=== PATIENT | male | born 1990 ===

== ENCOUNTER 2016-05-29 14:59 | Emergency (ER) | payer SELFPAY | END 2016-05-29 18:33 | disposition left against medical advice (07) | LOC: ED 14:59 | DX: J02.9 Acute pharyngitis, unspecified (principal); Z53.21 Procedure and treatment not carried out due to patient leaving prior to being seen by health care provider ==

== ENCOUNTER 2017-05-10 18:50 | Emergency (ER) | payer OTHER ==
--- NOTE | 2017-05-10 22:58 | Emergency Department Report ---
Minor Respiratory - HPI Chief Complaint: Upper Respiratory Infection Stated Complaint: FLU LIKE SYMPTOMS Time Seen by Provider: 05/10/17 22:52 Duration: 2 Days Severity: mild Minor Respiratory: Yes Rhinorrhea, Yes Sore Throat, Yes Able to Tolerate Fluids , Yes Cough, Yes Sick Contacts (at work), No Ear Pain, No Hemoptysis, No Chest Pain, No Shortness of Breath, No Fever Other History: This is a 27 y.o. male presents with dizziness, cough, chills, and vomiting for 2 days. Patient reports waking up this morning vomiting once. He started taking dayquil and feel much better. He just wanted to make sure he didn't have the flu. Denies body aches, SOB, chest pain, and abdominal pain. ED Review of Systems ROS: Stated complaint: FLU LIKE SYMPTOMS Other details as noted in HPI Constitutional: denies: chills, fever ENT: throat pain, congestion. denies: ear pain, dental pain, hearing loss, epistaxis Respiratory: cough. denies: orthopnea, shortness of breath, wheezing Cardiovascular: denies: chest pain, palpitations Gastrointestinal: vomiting (once this morning). denies: abdominal pain, nausea , diarrhea, constipation Musculoskeletal: denies: back pain, joint swelling, arthralgia Neurological: denies: headache, weakness, paresthesias ED Past Medical Hx - Past Medical History Previous Medical History?: No - Surgical History Past Surgical History?: No - Social History Smoking Status: Current Every Day Smoker Substance Use Type: None Minor Respiratory Exam - Exam General: Vital signs noted. No distress. Alert and acting appropriately. HEENT: Yes Pharyngeal Erythema, Yes Moist Mucous Membranes, Yes Rhinorrhea, No Pharyngeal Exudates, No Conjuctival Injection, No Frontal Tenderness, No Maxillary Tenderness Ear: Neither TM Bulge, Neither TM Erythema, Neither EAC Pain, Neither EAC Discharge Neck: Yes Supple, No Adenopathy Lungs: Yes Good Air Exchange, Yes Cough, No Wheezes, No Ronchi, No Stridor, No Labored Respirations, No Retractions, No Use of Accessory Muscles, No Other Abnormal Lung Sounds Heart: Yes Regular, No Murmur Abdomen: Yes Normal Bowel Sounds, No Tenderness, No Peritoneal Signs Skin: No Rash, No Edema Neurologic: Alert and oriented, no deficits. Musculoskeletal: Unremarkable. ED Course Vital Signs 05/10/17 19:03 Temperature 98 F Pulse Rate 68 Respiratory 18 Rate Blood Pressure 128/74 O2 Sat by Pulse 99 Oximetry ED Medical Decision Making - Medical Decision Making 27 y.o. male that presents with URI symptoms. Patient examined by me and stable. No distress noted. Patient family member admitted that patient didn't go to work today and need a doctor note and need room to return to work. Vitals stable. Normal assessment. Discharged home. Encouraged to do supportive care for URI. No medication ordered. Return to work tomorrow. Critical care attestation.: If time is entered above; I have spent that time in minutes in the direct care of this critically ill patient, excluding procedure time. ED Disposition Clinical Impression: URI (upper respiratory infection) Qualifiers: URI type: acute nasopharyngitis (common cold) Qualified Code(s): J00 - Acute nasopharyngitis [common cold] Disposition: TO HOME OR SELFCARE Is pt being admited?: No Does the pt Need Aspirin: No Condition: Stable Instructions: Upper Respiratory Infection (ED), Cold Symptoms (ED) Additional Instructions: Increase fluid intake and rest. Wash hands frequently. Continue taking tylenol or ibuprofen to control fever. F/U with Primary Care Provider. Return to ER if fever, SOB, or difficulty breathing after 48 hours of supportive care. Referrals: [facility] [Outside] - 3-5 Days [facility] [Outside] - 3-5 Days [facility] [Outside] - 3-5 Days Forms: Work/School Release Form(ED) Time of Disposition: 23:12 Print Language: ALBANIAN
[2017-05-10 23:27] VITALS: BP 130/76
== END 2017-05-10 23:27 | disposition home or self-care (01) ==
LOC: ED 18:50
DX: J00 Acute nasopharyngitis [common cold] (principal); R42 Dizziness and giddiness; R11.10 Vomiting, unspecified; F17.200 Nicotine dependence, unspecified, uncomplicated; Z88.6 Allergy status to analgesic agent
CPT/HCPCS: 99282

== ENCOUNTER 2018-12-01 19:56 | Emergency (ER) | payer SELFPAY ==
[2018-12-01 20:59] VITALS: BP 126/66
--- NOTE | 2018-12-01 22:44 | XRay Report ---
CHEST PA AND LATERAL VIEWS INDICATION: cough. COMPARISON: None FINDINGS: Support devices: None Heart: Normal Lungs/Pleura: No acute pulmonary or pleural findings. IMPRESSION: 1. Negative study Signer Name: Hunter Lea MD Signed: 12/01/2018 10:45 PM Workstation Name: [id number]
--- NOTE | 2018-12-02 00:21 | Emergency Department Report ---
- General Chief Complaint: Upper Respiratory Infection Stated Complaint: COLD Time Seen by Provider: 12/01/18 21:08 Source: patient Mode of arrival: Ambulatory Limitations: No Limitations - History of Present Illness MD Complaint: sore throat, rhinorrhea, nasal congestion, sinus pain -: Gradual Severity: mild Quality: dull Consistency: constant Worsens With: nothing Context: sick contacts Associated Symptoms: rhinorrhea, nasal congestion, sore throat, cough. denies: chills, diaphoresis, chest pain, nausea, vomiting, diarrhea, right sweats, weight loss, hoarseness, ear pain Treatments Prior to Arrival: none - Related Data Previous Rx's Medication Instructions Recorded Last Taken Type ALBUTEROL Inhaler (OR & NICU) 1 puff IH Q4-6H PRN #1 inha 12/02/18 Unknown Rx [ProAir HFA Inhaler] Azithromycin [Zithromax] 500 mg PO QDAY #3 tablet 12/02/18 Unknown Rx guaiFENesin/CODEINE [Robitussin AC] 5 ml PO Q6H PRN #120 ml 12/02/18 Unknown Rx Allergies Allergy/AdvReac Type Severity Reaction Status Date / Time tramadol Allergy Headache Verified 05/10/17 19:06 ED Review of Systems ROS: Stated complaint: COLD Other details as noted in HPI Comment: All other systems reviewed and negative ED Past Medical Hx - Past Medical History Previous Medical History?: No - Surgical History Past Surgical History?: Yes Additional Surgical History: A BABY - Social History Smoking Status: Current Every Day Smoker Substance Use Type: Alcohol, Marijuana - Medications Home Medications: Home Medications Medication Instructions Recorded Confirmed Last Taken Type ALBUTEROL Inhaler (OR & NICU) 1 puff IH Q4-6H PRN #1 inha 12/02/18 Unknown Rx [ProAir HFA Inhaler] Azithromycin [Zithromax] 500 mg PO QDAY #3 tablet 12/02/18 Unknown Rx guaiFENesin/CODEINE [Robitussin AC] 5 ml PO Q6H PRN #120 ml 12/02/18 Unknown Rx ED Physical Exam - General Limitations: No Limitations General appearance: alert, in no apparent distress - Head Head exam: Present: atraumatic, normocephalic - Eye Eye exam: Present: normal appearance - ENT ENT exam: Present: mucous membranes moist, other (nasal congestion bilaterally, left greater than right. Posterior pharynx erythema with some mild uniform edema. No abscess noted. Tongue and uvula are midline. Small effusion to the left tympanic membrane.) - Neck Neck exam: Present: normal inspection - Respiratory Respiratory exam: Present: normal lung sounds bilaterally. Absent: respiratory distress, wheezes, rales, chest wall tenderness - Cardiovascular Cardiovascular Exam: Present: regular rate, normal rhythm. Absent: systolic murmur, diastolic murmur, rubs, gallop - GI/Abdominal GI/Abdominal exam: Present: soft, normal bowel sounds - Rectal Rectal exam: Present: deferred - Extremities Exam Extremities exam: Present: normal inspection - Back Exam Back exam: Present: normal inspection - Neurological Exam Neurological exam: Present: alert, oriented X3 - Psychiatric Psychiatric exam: Present: normal affect, normal mood - Skin Skin exam: Present: warm, dry, intact, normal color. Absent: rash ED Course Vital Signs 12/01/18 20:58 Temperature 98.2 F Pulse Rate 65 Respiratory 18 Rate Blood Pressure 126/66 O2 Sat by Pulse 98 Oximetry ED Medical Decision Making - Radiology Data 28-year-old [place] male with cough, congestion, coryza and indicated above. Bronchitis/URI/sinusitis. 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 Critical care attestation.: If time is entered above; I have spent that time in minutes in the direct care of this critically ill patient, excluding procedure time. ED Disposition Clinical Impression: Cough, Pharyngitis Disposition: DC-01 TO HOME OR SELFCARE Is pt being admited?: No Does the pt Need Aspirin: No Condition: Stable Instructions: Acute Bronchitis (ED), Cold Symptoms (ED), Acute Cough (ED) Prescriptions: ALBUTEROL Inhaler (OR & NICU) [ProAir HFA Inhaler] 1 puff IH Q4-6H PRN #1 inha PRN Reason: Cough guaiFENesin/CODEINE [Robitussin AC] 5 ml PO Q6H PRN #120 ml PRN Reason: Cough Azithromycin [Zithromax] 500 mg PO QDAY #3 tablet Referrals: PRIMARY CARE, [Primary Care Provider] - 3-5 Days [facility] [Provider Group] - 3-5 Days
== END 2018-12-02 00:57 | disposition home or self-care (01) ==
LOC: ED 19:56
DX: J02.9 Acute pharyngitis, unspecified (principal); F17.200 Nicotine dependence, unspecified, uncomplicated; F12.10 Cannabis abuse, uncomplicated; Z88.5 Allergy status to narcotic agent; Z79.899 Other long term (current) drug therapy
CPT/HCPCS: 71046

== ENCOUNTER 2019-06-13 17:40 | Emergency (ER) | payer SELFPAY ==
--- NOTE | 2019-06-13 20:00 | Emergency Department Report ---
Chief Complaint: Dental/Oral Stated Complaint: RT SIDE TOOTHACHE/PAIN Time Seen by Provider: 06/13/19 19:58 - HPI History of Present Illness: This is a 29 y.o. M. that presents to the ER with right sided dental pain for 1 week. Reports pain at #2 and #31 molars. Pain is worse when cold air or food come in contact with tooth. - ROS Review of Systems: ROS: Stated complaint: Right sided dental pain Other details as noted in HPI Comment: All other systems reviewed and negative - Exam Vital Signs: Vital Signs 06/13/19 17:49 Temperature 98.7 F Pulse Rate 73 Respiratory 18 Rate Blood Pressure 120/78 O2 Sat by Pulse 100 Oximetry Physical Exam: - General Limitations: No Limitations General appearance: alert, in no apparent distress - Head Head exam: Present: atraumatic, normocephalic - Eye Eye exam: Present: right, injected conjunctiva, mucous discharge, PEERL. left, normal appearance - ENT ENT exam: Present: #31 avulsion to medial tooth, no gingival swelling, #2 dark brown dental caries center tooth, ttp, buccal swelling, uvula midline, mucous membranes moist - Neck Neck exam: Present: normal inspection, full ROM. Absent: lymphadenopathy - Respiratory Respiratory exam: Present: normal lung sounds bilaterally. Absent: respiratory distress - Cardiovascular Cardiovascular Exam: Present: regular rate, normal rhythm. Absent: systolic murmur, diastolic murmur, rubs, gallop - GI/Abdominal GI/Abdominal exam: Present: soft, normal bowel sounds - Extremities Exam Extremities exam: Present: normal inspection - Back Exam Back exam: Present: normal inspection - Neurological Exam Neurological exam: Present: alert, oriented X3 - Psychiatric Psychiatric exam: Present: normal affect, normal mood - Skin Skin exam: Present: warm, dry, intact, normal color. Absent: rash MSE screening note: Focused history and physical exam performed. Due to findings the following was ordered: ED Medical Decision Making - Medical Decision Making This is a 29-year-old male that presents with dental pain for 1 week. Patient is stable and was examined by me. Vital signs are normal. Susceptible of dental avulsion and dental caries. Buccal swelling surrounded in #1, tender to palpation, no pus pockets palpated. Start antibiotics and analgesics. Patient given list of emergency dental clinics for continued care. Discussed plan with patient. He agreed with ER plan. Discharged home stable with strict return instructions. ED Disposition for MSE Clinical Impression: Dental caries, Toothache Disposition: TO HOME OR SELFCARE Is pt being admited?: No Condition: Stable Instructions: Dental Caries (ED), Toothache (ED) Prescriptions: Naproxen [Naprosyn] 500 mg PO BID #20 tablet Amoxicillin [Trimox CAP] 500 mg PO Q8H #21 capsule Acetaminophen/Codeine [Tylenol /Codeine # 3 tab] 1 tab PO Q6H PRN #12 tab PRN Reason: Pain , Severe (7-10) Referrals: [facility] [Outside] - 3-[address] [facility] [Outside] - 3-5 Days [facility] [Outside] - 3-5 Days Time of Disposition: 20:06
[2019-06-13 20:06] VITALS: BP 120/78
== END 2019-06-13 20:57 | disposition home or self-care (01) ==
LOC: ED 17:40
DX: K02.9 Dental caries, unspecified (principal)
CPT/HCPCS: 99282